=== PATIENT | female | born 1985 | race African-American/Black ===

== ENCOUNTER 2016-08-22 12:41 | Emergency (ER) | payer MEDICAID ==
[2016-08-22] MEDS ORDERED: Ondansetron 4 MG/2 ML SDV IVPUSH STA (13:17)
[2016-08-22] MEDS ORDERED: Sodium Chloride 0.9% 1,000 ML IV ONE (13:17)
--- NOTE | 2016-08-22 13:32 | EDM.PDOC ---
ED HPI Behavioral Health - General Chief Complaint: Drug or Alcohol Abuse Stated Complaint: DEHYDRATION Time Seen by Provider: 08/22/16 12:53 Source of Information: Reports: Patient, RN notes reviewed Exam Limitations: Reports: No limitations - History of Present Illness INITIAL COMMENTS - FREE TEXT/NARRATIVE: The patient states that she is withdrawing from Suboxone. She states that she ordinarily takes 2 sublingual films every morning , but that her last dose was this past 08/16/2016. For the past 3 days she has not been able to calm down and has racing thoughts. She developed significant diaphoresis yesterday, then nausea, vomiting, diarrhea, and lower abdominal pain today. She states that she is prescribed Suboxone by Psychiatrist Dr. Lagos, however, he is a family friend; she does not receive psychiatric treatment from him, and he merely calls the prescriptions in. She states, however, that they had a disagreement, that he has been too controlling, therefore she did not followup with him on her previously scheduled appointment on 08/10/2016, hoping to find another doctor to write for her Suboxone, however, she has not been able to find anyone. The [place] PMP[place] indicates that her last Suboxone prescription was filled on 07/16/2016. She states that she has been on Suboxone for approximately 6 months; review of the [place] PMP[place] indicates her first prescription was on 12/20/[address] Johnson , a family practitioner who wrote for her to prescriptions of one week each before Dr. Lagos took over. The patient indicates that she was on Suboxone about 5 years ago, as well. She states that she was previously on prescription opioids, which led to abuse, which led to heroin use. She has also used methamphetamine, although none recently. She reports recent use of marijuana to help with her nausea. She denies the use of alcohol. - Related Data Allergies Allergy/AdvReac Type Severity Reaction Status Date / Time Sulfa (Sulfonamide Allergy Nausea Verified 08/22/16 12:49 Antibiotics) Home Medications: Home Meds Doxycycline [Vibramycin] 100 mg PO DAILY 04/05/16 [History] Promethazine HCl [Phenergan] 25 mg RC Q6H PRN #10 supp.rect 04/06/16 [Rx] Promethazine [Phenergan] 25 mg PO Q6H PRN #15 tablet 04/06/16 [Rx] Ondansetron [Zofran ODT] 1 tab PO Q8H PRN #10 tab.dis 08/22/16 [Rx] Back Pain Score (Numeric/FACES): 8 Past Medical History Psychiatric History: Reports: Addiction (as per the HPI) - Past Surgical History GI Surgical History: Reports: Cholecystectomy Social & Family History - Family History Family Medical History: Noncontributory - Tobacco Use Smoking Status *Q: Current Every Day Smoker Years of Tobacco use: 16 Packs/Tins Daily: 1 - Caffeine Use Caffeine Use: Reports: Soda - Alcohol Use Alcohol Use History: No - Recreational Drug Use Recreational Drug Use: Yes Drug Use in Last 12 Months: Yes Recreational Drug Type: Reports: Fentanyl, Heroin, Marijuana/Hashish, Methamphetamine, Morphine, Oxycodone, Vicodin, Other (see below). Denies: Cocaine, Ecstasy - Living Situation & Occupation Living situation: Reports: single, with significant other (Boyfriend) Occupation: unemployed ED ROS GENERAL - Review of Systems Review Of Systems: See Below Constitutional: Reports: no symptoms HEENT: Reports: No symptoms Respiratory: Reports: No Symptoms Cardiovascular: Reports: No symptoms Endocrine: Reports: no symptoms GI/Abdominal: Reports: No symptoms : Reports: no symptoms Musculoskeletal: Reports: no symptoms Skin: Reports: no symptoms Neurological: Reports: No Symptoms Psychiatric: Reports: No symptoms Hematologic/Lymphatic: Reports: no symptoms Immunologic: Reports: no symptoms ED EXAM, BEHAVIORAL HEALTH - Physical Exam Exam: See Below Exam Limited By: No limitations (Cooperative) General Appearance: alert, WD/WN, moderate distress (Appears uncomfortable, restless, and diaphoretic) Eye Exam: bilateral eye: EOMI, PERRL Ears: normal external exam, hearing grossly normal Nose: normal inspection, no blood Throat/Mouth: Normal inspection, Normal lips, Normal voice, No airway compromise Head: atraumatic, normocephalic Neck: normal inspection, full range of motion Respiratory/Chest: no respiratory distress, lungs clear, normal breath sounds, no accessory muscle use, chest non-tender Cardiovascular: normal peripheral pulses, regular rate, rhythm, no edema, no gallop, no JVD, no murmur, no rub GI/Abdominal: normal bowel sounds, soft, non tender (even to lower abdomen), no organomegaly, no distention, no abnormal bruit, no mass Back Exam: normal inspection, full range of motion, NT Extremities: normal inspection, normal range of motion, no pedal edema, normal capillary refill Neurological: alert, normal cognition, normal gait, no motor/sensory deficits, oriented x 3 Psychiatric: normal affect, other (Restless, constantly moving) Skin Exam: Warm, Dry, Intact, Normal color, No rash, Other (No pyloerection) COURSE, BEHAVIORAL HEALTH COMP - Course Vital Signs: Last Vital Signs Temp 36.1 C 08/22/16 12:50 Pulse 78 08/22/16 12:50 Resp 16 08/22/16 12:50 BP 123/90 08/22/16 14:08 Pulse Ox 100 08/22/16 12:50 Orders, Labs, Meds: Active Orders 24 hr Category Date Time Status Sodium Chloride 0.9% [Normal Saline] 1,000 ml Med 08/22/16 13:17 Active IV ONETIME Medication Orders Sodium Chloride (Normal Saline) 1,000 mls @ 1,000 mls/hr IV ONETIME ONE Stop: 08/22/16 14:16 Last Admin: 08/22/16 13:29 Dose: 1,000 mls/hr Laboratory Tests 08/22/16 08/22/16 08/22/16 Range/Units 13:25 13:25 13:25 WBC 7.84 (3.98-10.04) K/mm3 RBC 5.01 (3.98-5.22) M/mm3 Hgb 13.7 (11.2-15.7) gm/L Hct 41.9 (34.1-44.9) % MCV 83.6 (79.4-94.8) fl MCH 27.3 (25.6-32.2) pg MCHC 32.7 (32.2-35.5) g/dl RDW Std Deviation 42.0 (36.4-46.3) fL Plt Count 150 L (182-369) K/mm3 MPV 12.0 (9.4-12.3) fl Neutrophils % (Manual) 65 H (40-60) % Band Neutrophils % 0 (0-10) % Lymphocytes % (Manual) 30 (20-40) % Atypical Lymphs % 0 % Monocytes % (Manual) 3 (2-10) % Eosinophils % (Manual) 2 (0.7-5.8) % Basophils % (Manual) 0 L (0.1-1.2) Platelet Estimate Adequate RBC Morph Comment Normal Sodium 143 (136-145) mEq/L Potassium 3.5 (3.5-5.1) mEq/L Chloride 106 (98-107) mEq/L Carbon Dioxide 24 (21-32) mEq/L Anion Gap 16.5 H (5-15) BUN 9 (7-18) mg/dL Creatinine 0.7 (0.55-1.02) mg/dL Est Cr Clr Drug Dosing 122.57 mL/min Estimated GFR (MDRD) > 60 (>60) mL/min BUN/Creatinine Ratio 12.9 L (14-18) Glucose 94 (74-106) mg/dL Calcium 8.9 (8.5-10.1) mg/dL Total Bilirubin 0.3 (0.2-1.0) mg/dL AST 16 (15-37) U/L ALT 18 (14-59) U/L Alkaline Phosphatase 54 (46-116) U/L Total Protein 7.4 (6.4-8.2) g/dl Albumin 4.0 (3.4-5.0) g/dl Globulin 3.4 gm/dL Albumin/Globulin Ratio 1.2 (1-2) Urine Color (Yellow) Urine Appearance (Clear) Urine pH (5.0-8.0) Ur Specific [place] (1.005-1.030) Urine Protein (Negative) Urine Glucose (UA) (Negative) Urine Ketones (Negative) Urine Occult Blood (Negative) Urine Nitrite (Negative) Urine Bilirubin (Negative) Urine Urobilinogen (0.2-1.0) Ur Leukocyte Esterase (Negative) Urine RBC (0-5) /hpf Urine WBC (0-5) /hpf Ur Squamous Epith Cells (0-5) /hpf Urine Bacteria (FEW) /hpf Urine Mucus (FEW) /hpf Urine HCG, Qual (NEGATIVE) Salicylates 2.7 L (2.8-20) mg/dL Urine Opiates Screen (NEGATIVE) Ur Buprenorphine Scrn (NEGATIVE) Ur Oxycodone Screen (NEGATIVE) Urine Methadone Screen (NEGATIVE) Ur Propoxyphene Screen (NEGATIVE) Acetaminophen 0 L (10-30) ug/mL Ur Barbiturates Screen (NEGATIVE) Ur Tricyclics Screen (NEGATIVE) Ur Phencyclidine Scrn (NEGATIVE) Ur Amphetamine Screen (NEGATIVE) U Methamphetamines Scrn (NEGATIVE) U Benzodiazepines Scrn (NEGATIVE) U Cocaine Metab Screen (NEGATIVE) U Marijuana (THC) Screen (NEGATIVE) Ethyl Alcohol 0.00 (0.00) gm% 08/22/16 08/22/16 08/22/16 Range/Units 13:30 13:30 13:30 WBC (3.98-10.04) K/mm3 RBC (3.98-5.22) M/mm3 Hgb (11.2-15.7) gm/L Hct (34.1-44.9) % MCV (79.4-94.8) fl MCH (25.6-32.2) pg MCHC (32.2-35.5) g/dl RDW Std Deviation (36.4-46.3) fL Plt Count (182-369) K/mm3 MPV (9.4-12.3) fl Neutrophils % (Manual) (40-60) % Band Neutrophils % (0-10) % Lymphocytes % (Manual) (20-40) % Atypical Lymphs % % Monocytes % (Manual) (2-10) % Eosinophils % (Manual) (0.7-5.8) % Basophils % (Manual) (0.1-1.2) Platelet Estimate RBC Morph Comment Sodium (136-145) mEq/L Potassium (3.5-5.1) mEq/L Chloride (98-107) mEq/L Carbon Dioxide (21-32) mEq/L Anion Gap (5-15) BUN (7-18) mg/dL Creatinine (0.55-1.02) mg/dL Est Cr Clr Drug Dosing mL/min Estimated GFR (MDRD) (>60) mL/min BUN/Creatinine Ratio (14-18) Glucose (74-106) mg/dL Calcium (8.5-10.1) mg/dL Total Bilirubin (0.2-1.0) mg/dL AST (15-37) U/L ALT (14-59) U/L Alkaline Phosphatase (46-116) U/L Total Protein (6.4-8.2) g/dl Albumin (3.4-5.0) g/dl Globulin gm/dL Albumin/Globulin Ratio (1-2) Urine Color Yellow (Yellow) Urine Appearance Clear (Clear) Urine pH 8.0 (5.0-8.0) Ur Specific [place] 1.025 (1.005-1.030) Urine Protein 1+ H (Negative) Urine Glucose (UA) Negative (Negative) Urine Ketones Negative (Negative) Urine Occult Blood 3+ H (Negative) Urine Nitrite Negative (Negative) Urine Bilirubin Negative (Negative) Urine Urobilinogen 1.0 (0.2-1.0) Ur Leukocyte Esterase Negative (Negative) Urine RBC 5-10 H (0-5) /hpf Urine WBC 0-5 (0-5) /hpf Ur Squamous Epith Cells 5-10 H (0-5) /hpf Urine Bacteria Few (FEW) /hpf Urine Mucus Moderate H (FEW) /hpf Urine HCG, Qual Negative (NEGATIVE) Salicylates (2.8-20) mg/dL Urine Opiates Screen Negative (NEGATIVE) Ur Buprenorphine Scrn Presumptive positive H (NEGATIVE) Ur Oxycodone Screen Negative (NEGATIVE) Urine Methadone Screen Presumptive positive H (NEGATIVE) Ur Propoxyphene Screen Negative (NEGATIVE) Acetaminophen (10-30) ug/mL Ur Barbiturates Screen Negative (NEGATIVE) Ur Tricyclics Screen Negative (NEGATIVE) Ur Phencyclidine Scrn Negative (NEGATIVE) Ur Amphetamine Screen Presumptive positive H (NEGATIVE) U Methamphetamines Scrn Presumptive positive H (NEGATIVE) U Benzodiazepines Scrn Negative (NEGATIVE) U Cocaine Metab Screen Negative (NEGATIVE) U Marijuana (THC) Screen Presumptive positive H (NEGATIVE) Ethyl Alcohol (0.00) gm% Medications Generic Name Dose Route Start Last Admin Trade Name Freq PRN Reason Stop Dose Admin Sodium Chloride 1,000 mls @ 1,000 mls/hr 08/22/16 13:17 08/22/16 13:29 Normal Saline IV 08/22/16 14:16 1,000 mls/hr ONETIME ONE Administration Discontinued Medications Generic Name Dose Route Start Last Admin Trade Name Freq PRN Reason Stop Dose Admin Clonidine HCl 0.1 mg 08/22/16 13:54 08/22/16 14:08 Catapres PO 08/22/16 13:55 0.1 mg ONETIME ONE Administration Dicyclomine HCl 20 mg 08/22/16 13:52 08/22/16 14:09 Bentyl PO 08/22/16 13:53 20 mg ONETIME STA Administration Ondansetron HCl 8 mg 08/22/16 13:17 08/22/16 13:30 Zofran IVPUSH 08/22/16 13:18 8 mg ONETIME STA Administration Medical Clearance: 08/22/16 13:37 I suggested to the patient that if she feels that Dr. Lagos's behavior has been unprofessional, that she contact the [place] [employer] to register a complaint, but in the meantime, that she contact him to get her prescriptions for a Suboxone, as I am not aware of another physician with the [employer] licensure for this. The patient texted Dr. Lagos, who requested that we send him a urine drug screen and urine test, and that he would in turn call in a prescription for a Suboxone. We will have the patient sign a release, and fax that information when available. 08/22/16 14:15 Test results discussed with the patient. The buprenorphine is from Suboxone, and the patient admitted to recently using marijuana. She states that she acquired some methadone yesterday from "another person, I don't even know her name". She denies any knowledge about amphetamine, but acknowledges using methamphetamine this past Friday, . Despite the positive drug screen, the patient would still like us to forward the results to Dr. Lagos. She has been treated here with 1 L normal saline, 8 mg IV Zofran, 20 mg oral Bentyl, and 0.1 mg oral clonidine, for agitation. I will discharge her home with an e-prescription for Zofran ODT. Departure - Departure Time of Disposition: 14:23 Disposition: Home, Self-Care 01 Condition: fair Clinical Impression: Withdrawal from opioids Referrals: Migdalia Jordan MD [Primary Care Provider] - Additional Instructions: You were seen in the emergency room today for symptoms of Suboxone withdraw, including nausea, vomiting, diarrhea, sweatyness, agitation, and lower abdominal pain. Workup in the ER included blood work, a urinalysis, a urine test, and a urine drug screen. Your workup was remarkable for a drug screen positive for Suboxone, methadone, amphetamine, methamphetamine, and marijuana. The remainder of your workup was unremarkable. You do not have an electrolyte abnormality. You are not dehydrated. You do not have a urinary tract infection. You are not . As per your request, the results of your urine drug screen and a urine test have been forwarded to your psychiatrist, Dr. Lagos. Followup with Dr. Lagos as per his instructions. If you wish to file a complaint against Dr. Lagos for professional misconduct, please contact the [place] [employer]. If any other problems, please do not hesitate to return to the ER. - My Orders Last 24 Hours: My Active Orders 08/22/16 13:17 Sodium Chloride 0.9% [Normal Saline] 1,000 ml IV ONETIME - Assessment/Plan Last 24 Hours: My Active Orders 08/22/16 13:17 Sodium Chloride 0.9% [Normal Saline] 1,000 ml IV ONETIME
[2016-08-22] MEDS ORDERED: Dicyclomine 10 MG Cap PO STA (13:52)
[2016-08-22] MEDS ORDERED: cloNIDine 0.1 MG Tab PO ONE (13:54)
[2016-08-22 13:55] LABS: ACETAMINOPHEN 0 ug/mL (10-30)
[2016-08-22 14:16] VITALS: BP 123/90
== END 2016-08-22 14:37 | disposition home or self-care (01) ==
LOC: JD.ED 12:41
DX: F11.23 Opioid dependence with withdrawal (principal); T40.2X5A Adverse effect of other opioids, initial encounter; Z88.2 Allergy status to sulfonamides; F17.200 Nicotine dependence, unspecified, uncomplicated; F15.90 Other stimulant use, unspecified, uncomplicated; F12.90 Cannabis use, unspecified, uncomplicated
CPT/HCPCS: 36415; 80053; 80306; 81001; 81025; 85025; 99284; A9270; G0480; J2405; J7040; 96374